=== PATIENT | female | born 1945 | race Caucasian/White ===

== ENCOUNTER 2022-06-15 12:56 | Emergency (ER) | payer OTHER, MEDICAID ==
[~2022-06-15] VITALS: Ht 157.5 cm; Wt 74.4 kg
[~2022-06-15 12:56] MED LIST: ASPI-1393 PO; ATOR20TA64 PO; CALC-823 PO; DORZ10DR9 EACH EYE; FAMO20TA8 PO; GLIP5TAB26 PO; HYDR-3919 PO; LATA2.5D14 OP; LISI5TAB PO; METF1000 PO; TIMO5DRO16 OP
[2022-06-15 13:02] VITALS: BP_SYST 141
--- NOTE | 2022-06-15 13:09 | NUR ---
eye aquity attempted pt weras glasses did not bring them. unable to read the chart
--- NOTE | 2022-06-15 14:11 | NUR ---
Patient to ER bed 7 to gown for evaluation. Side rails up. Report given to amarilis.
--- NOTE | 2022-06-15 14:12 | NUR ---
Received report from RICHIE [place], regarding pt who was brought from home by her son c/o redness and bleeding to her rt eye. Patient is A&Ox4, calm and cooperative, VSS. Denies headache, trauma to the eye. States redness and draining started this am. Will provide care as ordered.
--- NOTE | 2022-06-15 14:18 | NUR ---
ER Dr. Antonio at bedside examining patient.
--- NOTE | 2022-06-15 15:01 | NUR ---
Patient given written and verbal discharge instructions and verbalizes understanding. ER Dr. Paco HARMAN discussed with patient the results and treatment provided. Patient in stable condition. ID arm band removed. Patient educated on pain management and to follow up with PMD. Pain Scale 2/10. Opportunity for questions provided and answered. Medication side effect fact sheet provided.
== END 2022-06-15 15:09 | disposition home or self-care (01) ==
LOC: SED 12:56
DX: H11.31 Conjunctival hemorrhage, right eye (principal); Z79.899 Other long term (current) drug therapy
CPT/HCPCS: 99281